=== PATIENT | male | born 2000 | race Caucasian/White ===

== ENCOUNTER 2019-07-30 09:58 | Emergency (ER) | payer MEDICAID ==
[~2019-07-30] VITALS: Ht 177.8 cm; Wt 129.0 kg
[2019-07-30 10:14] VITALS: BP 148/83
--- NOTE | 2019-07-30 10:15 | NUR ---
18/M BIB SELF C/O FEVER AND LOW BACK PAIN X 3 DAYS.DENIES DYSURIA. PATIENT STATES PAIN OF /10 AT THIS TIME. PATIENT POSITIONED FOR COMFORT; HOB ELEVATED; BEDRAILS UP X1; BED DOWN. ER MD MADE AWARE OF PT STATUS.
--- NOTE | 2019-07-30 10:20 | NUR ---
Dr. Mckinnon is evaluating the patient at bedside.
[2019-07-30] MEDS: IBUPROFEN 600 MG TAB PO ONE (10:35)
[2019-07-30] MEDS: ACETAMINOPHEN 325 MG TAB PO ONE (10:36)
--- NOTE | 2019-07-30 10:46 | NUR ---
FLU SWAB COLLECTED.
--- NOTE | 2019-07-30 12:14 | NUR ---
Dr. Mckinnon is evaluating the patient at bedside.
[2019-07-30 12:37] VITALS: BP 118/68
== END 2019-07-30 12:37 | disposition home or self-care (01) ==
LOC: MED 09:58
DX: R50.9 Fever, unspecified (principal); M54.5 Low back pain
CPT/HCPCS: 87804; 99283

== ENCOUNTER 2022-02-09 18:17 | Emergency (ER) | payer MEDICAID ==
[~2022-02-09] VITALS: Ht 180.3 cm; Wt 133.4 kg
[2022-02-09 18:29] VITALS: BP 145/94
[2022-02-09] MEDS ORDERED: PENI500T20 PO (20:07)
[2022-02-09 20:11] VITALS: BP 145/94
== END 2022-02-09 20:13 | disposition home or self-care (01) ==
LOC: MED 18:17
DX: S01.511A Laceration without foreign body of lip, initial encounter (principal); X58.XXXA Exposure to other specified factors, initial encounter; Y93.89 Activity, other specified; Y92.89 Other specified places as the place of occurrence of the external cause; Y99.8 Other external cause status
CPT/HCPCS: 99283

== ENCOUNTER 2023-10-11 10:50 | Emergency (ER) | payer MEDICAID ==
[~2023-10-11] VITALS: Ht 180.3 cm; Wt 117.9 kg
[~2023-10-11 10:50] MED LIST: PENI500T20 PO
[2023-10-11 10:56] VITALS: BP 147/102; PULSE 95; RESP 18; TEMP 98.5; O2SAT 95
[2023-10-11] MEDS ORDERED: ACET-8905 PO (11:45)
[2023-10-11] MEDS ORDERED: NAPR-337 PO (11:45)
[2023-10-11 11:53] VITALS: BP 147/102; PULSE 95; RESP 18; TEMP 98.5; O2SAT 95
== END 2023-10-11 11:53 | disposition home or self-care (01) ==
LOC: MED 10:50
DX: M54.30 Sciatica, unspecified side (principal); Z79.1 Long term (current) use of non-steroidal anti-inflammatories (NSAID); Z79.899 Other long term (current) drug therapy
CPT/HCPCS: 99283

== ENCOUNTER 2024-01-29 09:19 | Inpatient (IN) | payer MEDICAID ==
[~2024-01-29] VITALS: Ht 180.3 cm; Wt 107.5 kg
[2024-01-29] VITALS (7 sets, daily range): BP systolic 112–153; BP diastolic 64–111; PULSE 77–95; RESP 17–20; TEMP 98–98.6; O2SAT 98–100
[~2024-01-29 09:19] MED LIST changes: +ACET-8905 PO; +NAPR-337 PO
[2024-01-29] MEDS: NACL 0.9% 1,000 ML IV ONE (10:53)
[2024-01-29 11:04] LABS: BASOPHILS % (AUTO) 0.6 % (0.0-2.0); EOSINOPHILS % (AUTO) 0.2 % (0.0-4.0); HEMATOCRIT 48.5 % (36-52); HEMOGLOBIN 16.6 g/dL (12.0-18.0); LYMPHOCYTES # (AUTO) 1.1 K/uL (2.0-11.5); LYMPHOCYTES % (AUTO) 22.9 % (20.5-51.1); MEAN CORPUSCULAR HEMOGLOBIN 30 pg (27-31); MEAN CORPUSCULAR HGB CONC 34 g/dL (33-37); MEAN CORPUSCULAR VOLUME 86.3 fL (80-94); MONOCYTES # (AUTO) 0.3 K/uL (0.8-1.0); NEUTROPHILS # (AUTO) 3.2 K/uL (1.8-7.7); NEUTROPHILS % (AUTO) 69.3 % (42.2-75.2); PLATELET COUNT (AUTO) 255 K/uL (140-450); RED BLOOD CELL COUNT(AUTO) 5.62 MIL/uL (4.20-6.10); RED CELL DISTRIBUTION WIDTH 12.8 % (11.6-13.7); WHITE BLOOD COUNT (AUTO) 4.7 K/uL (4.8-10.8)
[2024-01-29 11:14] LABS: ANION GAP 13.2 (8-16); CALCIUM 9.3 mg/dL (8.5-10.1); CARBON DIOXIDE 28.5 mmol/L (21-32); CREATININE 1.1 mg/dL (0.6-1.3); POTASSIUM 3.7 mmol/L (3.5-5.1)
[2024-01-29] MEDS ORDERED: CEFEPIME 1,000 MG VIAL ONE (12:39)
[2024-01-29] MEDS ORDERED: VANCOMYCIN 1,000 MG VIAL ONE (12:39)
[2024-01-29] MEDS: CEFEPIME 1,000 MG in DEXTROSE 5% 50 ML IV ONE (12:52)
[2024-01-29] MEDS: VANCOMYCIN 1,000 MG in DEXTROSE 5% 250 ML IV ONE (13:23)
[2024-01-29 13:34] LABS: AMPHETAMINE, URINE NEGATIVE ng/ml (NEG <=1000); BARBITURATE, URINE NEGATIVE ng/ml (NEG <=200); BENZODIAZEPINE, URINE NEGATIVE ng/mL (NEG <=200); CANNABINOID, URINE POSITIVE ng/mL (NEG <=50); COCAINE, URINE NEGATIVE ng/mL (NEG <=300); OPIATE, URINE NEGATIVE ng/mL (NEG <=2000); PHENCYCLIDINE SCREEN,URINE NEGATIVE ng/mL (NEG <=25)
[2024-01-29] MEDS ORDERED: MORPHINE SULFATE 2 MG/ML SYR IVP PRN (13:50)
[2024-01-29] MEDS ORDERED: ONDANSETRON 4 MG/2 ML VIAL IVP PRN (13:50)
[2024-01-29] MEDS ORDERED: VANCOMYCIN PER PHARMACY MC PRN (13:50)
[2024-01-29 14:01] LABS: HIV RAPID SCREEN NON-REACTIVE (NON REACTIV)
[2024-01-29] MEDS: ASPIRIN 325 MG TAB PO ONE (14:46)
[2024-01-29] MEDS: NACL 0.9% 1,000 ML IV SCH (14:48)
[2024-01-29 14:53] LABS: FLU A ANTIGEN negative (NEGATIVE); FLU B ANTIGEN NEGATIVE (NEGATIVE)
[2024-01-29] MEDS ORDERED: CEFEPIME 1,000 MG in DEXTROSE 5% 50 ML IV SCH (21:00)
[2024-01-29] MEDS: ACETAMINOPHEN 325 MG TAB PO PRN (22:18)
[2024-01-29] MEDS: CEFEPIME 1,000 MG in DEXTROSE 5% 50 ML IV SCH (22:28)
[2024-01-29] MEDS: VANCOMYCIN 1.25GM PREMIX 250 ML IV SCH (22:59)
[2024-01-29 23:08] LABS: APPEARANCE,URINE CLEAR (CLEAR); BILIRUBIN,URINE NEGATIVE (NEGATIVE); BLOOD, URINE NEGATIVE (NEGATIVE); COLOR,URINE YELLOW (YELLOW); LEUKOCYTE ESTERASE ,URINE NEGATIVE (NEGATIVE); NITRITE, URINE NEGATIVE (NEGATIVE); PH,URINE 6.5 (5.0-9.0); PROTEIN,URINE NEGATIVE (NEGATIVE); UGLUCOSE NEGATIVE (NEGATIVE)
[2024-01-30] VITALS: BP_SYST 139; BP_SYST 144; BP_DIAS 86; BP_DIAS 88; PULSE 66; PULSE 69; PULSE 77; RESP 18; TEMP 98; O2SAT 100; O2SAT 96
[2024-01-30 04:00] VITALS: BP 140/89; PULSE 82; PULSE 97; RESP 20; TEMP 97.8; O2SAT 98
[2024-01-30 05:28] LABS: BASOPHILS % (AUTO) 0.5 % (0.0-2.0); EOSINOPHILS % (AUTO) 0.5 % (0.0-4.0); HEMATOCRIT 42.2 % (36-52); HEMOGLOBIN 14.5 g/dL (12.0-18.0); LYMPHOCYTES # (AUTO) 1.5 K/uL (2.0-11.5); LYMPHOCYTES % (AUTO) 28.1 % (20.5-51.1); MEAN CORPUSCULAR HEMOGLOBIN 30 pg (27-31); MEAN CORPUSCULAR HGB CONC 34 g/dL (33-37); MEAN CORPUSCULAR VOLUME 85.9 fL (80-94); MONOCYTES # (AUTO) 0.5 K/uL (0.8-1.0); MONOCYTES % (AUTO) 8.9 % (1.7-9.3); NEUTROPHILS # (AUTO) 3.3 K/uL (1.8-7.7); PLATELET COUNT (AUTO) 218 K/uL (140-450); RED BLOOD CELL COUNT(AUTO) 4.91 MIL/uL (4.20-6.10); WHITE BLOOD COUNT (AUTO) 5.3 K/uL (4.8-10.8)
[2024-01-30 05:47] LABS: ALBUMIN 3.8 g/dL (3.4-5.0); ANION GAP 14.2 (8-16); CALCIUM 8.6 mg/dL (8.5-10.1); CREATININE 0.9 mg/dL (0.6-1.3); MAGNESIUM 1.7 mg/dL (1.8-2.4); POTASSIUM 3.2 mmol/L (3.5-5.1); TOTAL BILIRUBIN 1.2 mg/dL (0.0-1.0); TOTAL PROTEIN, SERUM 6.8 g/dL (6.4-8.2)
[2024-01-30 08:00] VITALS: BP 155/89; PULSE 82; PULSE 89; RESP 18; RESP 20; TEMP 98.1; O2SAT 98; O2SAT 99
[2024-01-30] MEDS: ASPIRIN 81 MG TAB.CHEW PO SCH (09:16)
[2024-01-30] MEDS: MAGNESIUM CHLORIDE 64 MG TABEC PO SCH (09:55)
[2024-01-30] MEDS: POTASSIUM CHLORIDE 40 MEQ, LIDOCAINE 1% 25 MG in NACL 0.9% 250 ML IV SCH (12:28)
[2024-01-30 16:00] VITALS: BP 140/85; PULSE 85; RESP 20; TEMP 98; O2SAT 99
[2024-01-30 20:00] VITALS: BP 144/88; PULSE 77; PULSE 89; RESP 18; TEMP 98; O2SAT 96; O2SAT 98
[2024-01-30] MEDS: carvediloL 6.25 MG TAB PO SCH (23:50)
[2024-01-31] VITALS: BP 144/88; PULSE 77; RESP 18; TEMP 98; O2SAT 96
[2024-01-31 04:00] VITALS: BP 131/89; PULSE 65; RESP 18; TEMP 96.3; O2SAT 98
[2024-01-31 09:06] VITALS: PULSE 80
[2024-01-31] MEDS: LOSARTAN 25 MG TAB PO SCH (09:24)
[2024-01-31] MEDS ORDERED: ASPI-1822 PO (11:28)
[2024-01-31] MEDS ORDERED: CARV6.252 PO (11:28)
[2024-01-31 12:51] VITALS: BP 161/92; PULSE 64; RESP 14; TEMP 97; O2SAT 100
[2024-01-31 12:59] LABS: RAPID PLASMA REAGIN NON-REACTIVE (Non Reactiv)
== END 2024-01-31 12:50 | disposition home or self-care (01) | DRG 207 ==
LOC: MED 09:19 → MTU 14:14
PROVIDERS: ADMIT Student in an Organized Health Care Education/Training Program; ATTEND Student in an Organized Health Care Education/Training Program
DX: I40.0 Infective myocarditis (principal); F12.90 Cannabis use, unspecified, uncomplicated; R79.89 Other specified abnormal findings of blood chemistry; Z20.822 Contact with and (suspected) exposure to COVID-19; Z79.899 Other long term (current) drug therapy; J06.9 Acute upper respiratory infection, unspecified
CPT/HCPCS: 36415; 71045; 80048; 80053; 80202; 80305; 81003; 83735; 83880; 84100; 84484; 85025; 85379; 85651; 86140; 86592; 87040; 87081; 87491; 93005; 96361; 96365; 96367; 99291; J0692; J2001; J3370; J3372; J3480; J7030; J7060; Q0092